=== PATIENT | male | born 1945 | race Caucasian/White ===

== ENCOUNTER 2017-04-15 14:18 | Outpatient (CLI) | payer MEDICARE, BC ==
--- NOTE | 2017-04-17 08:18 | MRI ---
MRI OF THE PELVIS WITH AND WITHOUT IV CONTRAST: INDICATION: Elevated PSA, diagnosis code R97.20. TECHNIQUE: Multiplanar, multisequence MR images were obtained of the pelvis with and without contrast utilizing a prostate cancer protocol, 16 cc of MultiHance was utilized for the examination. FINDINGS: The prostate measures 6.8 x 8.3 x 4.9 cm giving an estimated total prostatic volume of 143.8 cc. The re is a large protruding nodule extending from the base of the prostate into the lumen of the bladder approximately 3.4 cm that likely overestimates the total prostatic volume. No abnormal region of re stricted diffusion is seen within the peripheral zone on the ADC and DWI images. There are multiple prominent nodules seen within the central zone. No suspicious region is seen within the central zone on the T2 weighted images. The visualized neurovascular bundles appear within normal limits. No re gion of abnormal enhancement seen on the dynamic contrast-enhanced images. There is no pathologicall y enlarged lymph node demonstrated. IMPRESSION: 1. PI-RADS category 1 - very low (clinically significant cancer is highly unlikely to be present). 2. Prominent benign prostatic hypertrophy nodule is seen protruding through the base of the bladder into the lumen just over 3 cm. POS: ALIS
== END 2017-04-15 14:19 | disposition home or self-care (01) ==
LOC: TBSIIMAG 14:18
PROVIDERS: ATTEND Urology
DX: R97.20 Elevated prostate specific antigen [PSA] (principal); N40.0 Benign prostatic hyperplasia without lower urinary tract symptoms
CPT/HCPCS: 72197

== ENCOUNTER 2018-09-24 09:49 | Outpatient (CLI) | payer MEDICARE, BC ==
--- NOTE | 2018-09-24 12:55 | MRI ---
EXAM: MRI of the pelvis/prostate without and with contrast HISTORY: elevated PSA COMPARISON: 04/15/2017 TECHNIQUE: Multiplanar multisequence MR images were obtained of the pelvis without and with IV contra st. Evaluation of this exam was performed with a Eve workstation. FINDINGS: Central gland: Severe hypertrophy of the central gland consistent with BPH. There is a large median l obe of the prostate extending into the urinary bladder. No suspicious low T2 signal lesion is seen. Peripheral zone: No restricted diffusion is seen. No low signal on ADC map. Seminal vesicles: Intact without abnormality Neurovascular bundles: Intact Pelvic lymph nodes: No pelvic adenopathy Other visualized intrapelvic structures: Unremarkable Osseous structures: No marrow signal abnormality IMPRESSION: PI-RADS Category 2-low likelihood that a clinically significant cancer is present.
== END 2018-09-24 09:50 | disposition home or self-care (01) ==
LOC: TBSIIMAG 09:49
PROVIDERS: ATTEND Urology
DX: R97.20 Elevated prostate specific antigen [PSA] (principal)
CPT/HCPCS: 72197; 82565

== ENCOUNTER 2023-03-31 22:37 | Emergency (ER) | payer BC, MEDICARE ==
[2023-04-01] MEDS ORDERED: fentaNYL 50 mcg/mL 1 mL Vial ONE ×2 (00:55→00:56)
== END 2023-04-01 02:28 | disposition home or self-care (01) ==
LOC: ERS 22:37
DX: S42.211A Unspecified displaced fracture of surgical neck of right humerus, initial encounter for closed fracture (principal); E11.9 Type 2 diabetes mellitus without complications; W01.0XXA Fall on same level from slipping, tripping and stumbling without subsequent striking against object, initial encounter
CPT/HCPCS: 73030; J3010; 96374

== ENCOUNTER 2023-05-15 13:17 | Inpatient (IN) | payer MEDICARE ==
[2023-05-15 14:44] LABS: Hematocrit 39.5 % (42.0-52.0); Hemoglobin 13.6 g/dL (14.0-18.0); Manual Diff?? YES; Mean Corpuscular HGB CONC 34.4 g/dL (32.0-36.0); Mean Corpuscular Hemoglobin 31.6 pg (27.0-31.0); Mean Corpuscular Volume 91.6 fl (78.0-98.0); Mean Platelet Volume 9.4 fL (7.4-10.4); Platelet Count 226 10x3/uL (130-400); RBC Distribution Width 13.3 % (11.5-14.5); Red Blood Cell (RBC) Count 4.31 mill/uL (4.70-6.10)
[2023-05-15 14:50] LABS: Delete Auto Diff?? YES
[2023-05-15 15:06] LABS: Albumin 3.5 g/dL (3.4-4.8); Anion Gap 20 mmol/L (10-20); BUN (Urea Nitrogen) 118 mg/dL (8.4-25.7); Calc. Creatinine Clearance 0 mL/min (70-130); Calcium 8.2 mg/dL (7.8-10.44); Carbon Dioxide 19 mmol/L (23-31); Chloride 96 mmol/L (98-107); Estimated GFR 18; Glucose 343 mg/dL (83-110); Potassium 3.8 mmol/L (3.5-5.1); Protein, Total 5.8 g/dL (5.8-8.1); Sodium 131 mmol/L (136-145)
[2023-05-15 15:07] LABS: ALT (SGPT) 19 U/L (8-55); AST (SGOT) 23 U/L (5-34); Alkaline Phosphatase 88 U/L (40-110); Globulin 2.3 g/dL (2.4-3.5); Lipase 7 U/L (8-78); Magnesium 2.1 mg/dL (1.6-2.6)
[2023-05-15 15:09] LABS: Troponin I 0.024 ng/mL (< 0.028)
[2023-05-15 15:13] LABS: SARS-CoV-2 NAA Rapid Test Not Detected (NotDetected)
[2023-05-15 15:16] LABS: Band 38 % (5-11); CellaVision Operator ID LAB.KB; Dohle Bodies SLIGHT; Lymphocytes 5 % (21-51); Macrocytosis SLIGHT = 6-15 cells HPF (0-5); Monocytes 11 % (0-10); Neutrophil 47 % (42-75); Platelet Adequacy Comment Platelets Normal; Polychromasia SLIGHT = 2-3 cells HPF (0-2); Smudge Cells 35.2 %; Total Cell Count 105; Toxic Granulation SLIGHT
[2023-05-15] MEDS ORDERED: cefTRIAXone (ROCEPHIN) 2 GM VIAL ONE (15:17)
[2023-05-15] MEDS ORDERED: Sodium Chloride 0.9% 100 ML ONE (15:17)
[2023-05-15] MEDS ORDERED: Azithromycin 500 MG VIAL ONE (16:02)
[2023-05-15] MEDS ORDERED: Glucagon 1 MG/ML KIT IM PRN (16:52)
[2023-05-15] MEDS ORDERED: Dextrose 50% Abboject 50 ML SYRINGE SLOW IVP PRN (16:52)
[2023-05-15] MEDS ORDERED: Ondansetron ODT 4 MG TAB PO PRN (16:52)
[2023-05-15] MEDS ORDERED: Dextrose 5% in Water 1,000 ML IV PRN (16:52)
[2023-05-15] MEDS ORDERED: Metoprolol Tartrate 5 MG (5 mL) VIAL ONE ×2 (17:22→18:00)
[2023-05-15 18:46] LABS: Bilirubin Negative (Negative); Blood, Urine Trace (Negative); CAUTI Indications for Culture Pelvic or flank pain; Clarity Turbid (Clear); Glucose, Urine (Dipstick) 100 mg/dL (Negative); Ketone, Urine Trace mg/dL (Negative); Leukocyte Negative Leu/uL (Negative); Nitrite Negative (Negative); Protein, Urine (Dipstick) 30 mg/dL (Neg-Trace); RBC/HPF 0-3 HPF (0-3); Specific Gravity, Urine 1.015 (1.002-1.036); Squamous Epithelial None Seen HPF (0-3); Urobilinogen Normal mg/dL (Less than 2)
[2023-05-15 18:49] LABS: Bacteria/HPF 1+ HPF (None Seen)
[2023-05-15 18:50] LABS: Urine Culture Reflex No No
[2023-05-16] MEDS: HumaLOG 300 UNITS/3 ML VIAL SC PRN ×2 (00:32→20:10)
[2023-05-16] MEDS: Famotidine 20 MG TAB PO SCH ×2 (00:33→10:36)
[2023-05-16] MEDS: Sodium Chloride 0.9% 1,000 ML IV SCH ×3 (00:33→18:08)
[2023-05-16 04:38] LABS: Hematocrit 36.9 % (42.0-52.0); Hemoglobin 12.6 g/dL (14.0-18.0); Manual Diff?? YES; Mean Corpuscular HGB CONC 34.1 g/dL (32.0-36.0); Mean Corpuscular Hemoglobin 31.6 pg (27.0-31.0); Mean Corpuscular Volume 92.5 fl (78.0-98.0); Platelet Count 221 10x3/uL (130-400); RBC Distribution Width 13.5 % (11.5-14.5); Red Blood Cell (RBC) Count 3.99 mill/uL (4.70-6.10); White Blood Cell (WBC) Count 15.9 10x3/uL (4.8-10.8)
[2023-05-16 05:11] LABS: ALT (SGPT) 14 U/L (8-55); AST (SGOT) 17 U/L (5-34); Albumin 2.7 g/dL (3.4-4.8); Alkaline Phosphatase 68 U/L (40-110); Anion Gap 16 mmol/L (10-20); BUN (Urea Nitrogen) 96 mg/dL (8.4-25.7); Bilirubin, Total 0.7 mg/dL (0.2-1.2); Calc. Creatinine Clearance 26 mL/min (70-130); Calcium 7.8 mg/dL (7.8-10.44); Carbon Dioxide 20 mmol/L (23-31); Chloride 104 mmol/L (98-107); Estimated GFR 30; Globulin 2.2 g/dL (2.4-3.5); Glucose 247 mg/dL (83-110); Potassium 3.1 mmol/L (3.5-5.1); Protein, Total 4.9 g/dL (5.8-8.1); Sodium 137 mmol/L (136-145)
[2023-05-16 05:31] LABS: Delete Auto Diff?? YES
[2023-05-16 06:02] LABS: Band 35 % (5-11); Burr Cells MODERATE= 6-15 cells HPF (0-1); CellaVision Operator ID lab.abc; Lymphocytes 3 % (21-51); Monocytes 2 % (0-10); Neutrophil 61 % (42-75); Platelet Adequacy Comment Platelets Normal; Poikilocytosis SLIGHT = 6-15 cells HPF (0-5); Smudge Cells 30.8 %; Total Cell Count 107; Toxic Granulation SLIGHT
[2023-05-16] MEDS: Insulin Regular 300 UNITS/3 ML VIAL SC PRN (06:22)
[2023-05-16] MEDS: Albumin 25% 25 GM (100 mL) BOT IVPB SCH ×4 (11:16→23:44)
[2023-05-16] MEDS: metFORMIN 500 MG TAB PO SCH (11:28)
[2023-05-16] MEDS: Pioglitazone HCl 15 MG TAB PO SCH (11:28)
[2023-05-16] MEDS: Tamsulosin HCl 0.4 MG CAP PO SCH ×2 (11:28→21:19)
[2023-05-16] MEDS ORDERED: Potassium Chloride 20 MEQ TAB PO SCH ×2 (14:00→14:30)
[2023-05-16] MEDS: Azithromycin 500 MG in Sodium Chloride 0.9% 250 ML 250 ML IVPB SCH (16:31)
[2023-05-16] MEDS ORDERED: Potassium Bicarbonate/Cit Ac 20 MEQ TAB PO SCH (18:45)
[2023-05-16] MEDS: cefTRIAXone\\ROCEPHIN 2 GM in Sodium Chloride 0.9% 100 ML IVPB SCH (20:10)
[2023-05-16] MEDS: Ondansetron PF 4 MG/2 ML Vial IVP PRN (21:19)
[2023-05-16] MEDS: Acetaminophen 325 MG TAB PO PRN (21:23)
[2023-05-16 22:33] LABS: Anion Gap 13 mmol/L (10-20); BUN (Urea Nitrogen) 71 mg/dL (8.4-25.7); Calc. Creatinine Clearance 35 mL/min (70-130); Calcium 7.6 mg/dL (7.8-10.44); Carbon Dioxide 18 mmol/L (23-31); Chloride 108 mmol/L (98-107); Estimated GFR 44; Glucose 196 mg/dL (83-110); Magnesium 1.9 mg/dL (1.6-2.6); Potassium 3.3 mmol/L (3.5-5.1); Sodium 136 mmol/L (136-145)
[2023-05-16] MEDS: Potassium Chloride 20 MEQ in Premix 1 BAG IVPB SCH (23:54)
[2023-05-17] MEDS: Potassium Chloride 20 MEQ in Premix 1 BAG IVPB SCH (01:58)
[2023-05-17] MEDS: Sodium Chloride 0.9% 1,000 ML IV SCH ×4 (03:32→20:41)
[2023-05-17 05:08] LABS: Hematocrit 30.6 % (42.0-52.0); Hemoglobin 10.3 g/dL (14.0-18.0); Manual Diff?? YES; Mean Corpuscular HGB CONC 33.7 g/dL (32.0-36.0); Mean Corpuscular Hemoglobin 31.8 pg (27.0-31.0); Mean Corpuscular Volume 94.4 fl (78.0-98.0); Mean Platelet Volume 9.7 fL (7.4-10.4); Platelet Count 162 10x3/uL (130-400); RBC Distribution Width 13.9 % (11.5-14.5); Red Blood Cell (RBC) Count 3.24 mill/uL (4.70-6.10); White Blood Cell (WBC) Count 6.9 10x3/uL (4.8-10.8)
[2023-05-17 05:10] LABS: Delete Auto Diff?? YES
[2023-05-17 05:48] LABS: Anisocytosis SLIGHT = 6-15 cells HPF (0-5); Band 50 % (5-11); CellaVision Operator ID LAB.CLH1; Hypochromia SLIGHT = 6-15 cells HPF (0-5); Large Platelets 0.9 % (0-5); Lymphocytes 2 % (21-51); Metamyelocyte 5 % (0-0); Monocytes 4 % (0-10); Neutrophil 40 % (42-75); Platelet Adequacy Comment Platelets Normal; Polychromasia SLIGHT = 2-3 cells HPF (0-2); Total Cell Count 106
[2023-05-17 05:55] LABS: Anion Gap 12 mmol/L (10-20); BUN (Urea Nitrogen) 63 mg/dL (8.4-25.7); Calc. Creatinine Clearance 38 mL/min (70-130); Calcium 7.7 mg/dL (7.8-10.44); Carbon Dioxide 16 mmol/L (23-31); Chloride 112 mmol/L (98-107); Estimated GFR 49; Glucose 155 mg/dL (83-110); Potassium 3.5 mmol/L (3.5-5.1); Sodium 136 mmol/L (136-145)
[2023-05-17] MEDS: Albumin 25% 25 GM (100 mL) BOT IVPB SCH (06:37)
[2023-05-17] MEDS ORDERED: Famotidine 20 MG TAB PO SCH (09:00)
[2023-05-17] MEDS: Tamsulosin HCl 0.4 MG CAP PO SCH ×2 (09:47→21:04)
[2023-05-17] MEDS: Pioglitazone HCl 15 MG TAB PO SCH (09:47)
[2023-05-17] MEDS: metFORMIN 500 MG TAB PO SCH (09:47)
[2023-05-17] MEDS: cefTRIAXone\\ROCEPHIN 2 GM in Sodium Chloride 0.9% 100 ML IVPB SCH (15:55)
[2023-05-17] MEDS: Azithromycin 500 MG in Sodium Chloride 0.9% 250 ML 250 ML IVPB SCH (15:59)
[2023-05-18] MEDS ORDERED: Metoprolol Tartrate 5 MG (5 mL) VIAL IVP SCH (03:30)
[2023-05-18] MEDS ORDERED: Metoprolol Tartrate 5 MG (5 mL) VIAL IVP PRN (03:59)
[2023-05-18 04:11] LABS: Hematocrit 31.3 % (42.0-52.0); Hemoglobin 10.4 g/dL (14.0-18.0); Manual Diff?? YES; Mean Corpuscular HGB CONC 33.2 g/dL (32.0-36.0); Mean Corpuscular Hemoglobin 31.1 pg (27.0-31.0); Mean Corpuscular Volume 93.7 fl (78.0-98.0); Mean Platelet Volume 9.3 fL (7.4-10.4); Platelet Count 170 10x3/uL (130-400); RBC Distribution Width 14.2 % (11.5-14.5); Red Blood Cell (RBC) Count 3.34 mill/uL (4.70-6.10); White Blood Cell (WBC) Count 6.2 10x3/uL (4.8-10.8)
[2023-05-18] MEDS ORDERED: Communication Order-Pharmacy FS ONE (04:21)
[2023-05-18 04:31] LABS: Anion Gap 15 mmol/L (10-20); BUN (Urea Nitrogen) 38 mg/dL (8.4-25.7); Calc. Creatinine Clearance 45 mL/min (70-130); Calcium 7.5 mg/dL (7.8-10.44); Carbon Dioxide 13 mmol/L (23-31); Chloride 113 mmol/L (98-107); Estimated GFR 60; Glucose 173 mg/dL (83-110); Magnesium 1.9 mg/dL (1.6-2.6); Potassium 3.3 mmol/L (3.5-5.1); Sodium 138 mmol/L (136-145)
[2023-05-18] MEDS ORDERED: Enoxaparin 60 MG (0.6 mL) SYRINGE SC SCH (04:45)
[2023-05-18 04:53] LABS: Delete Auto Diff?? YES
[2023-05-18 05:34] LABS: Band 7 % (5-11); Burr Cells MODERATE= 6-15 cells HPF (0-1); CellaVision Operator ID LAB.NR; Large Platelets 4.5 % (0-5); Lymphocytes 2 % (21-51); Macrocytosis SLIGHT = 6-15 cells HPF (0-5); Monocytes 6 % (0-10); Neutrophil 85 % (42-75); Platelet Adequacy Comment Platelets Normal; Poikilocytosis MARKED = >30 cells HPF (0-5); Smudge Cells 37.3 %; Total Cell Count 67
[2023-05-18] MEDS: dilTIAZem 125 MG in Sodium Chloride 0.9% 100 ML IVPB SCH (05:36)
[2023-05-18] MEDS: Sodium Chloride 0.9% 1,000 ML IV SCH ×4 (05:36→22:21)
[2023-05-18] MEDS: metFORMIN 500 MG TAB PO SCH (09:50)
[2023-05-18] MEDS: Tamsulosin HCl 0.4 MG CAP PO SCH ×2 (09:50→22:21)
[2023-05-18] MEDS: Pioglitazone HCl 15 MG TAB PO SCH (09:50)
[2023-05-18] MEDS: cefTRIAXone\\ROCEPHIN 2 GM in Sodium Chloride 0.9% 100 ML IVPB SCH (13:50)
[2023-05-18] MEDS: Azithromycin 500 MG in Sodium Chloride 0.9% 250 ML 250 ML IVPB SCH (15:53)
[2023-05-19] MEDS: dilTIAZem 125 MG in Sodium Chloride 0.9% 100 ML IVPB SCH (02:14)
[2023-05-19] MEDS: Sodium Chloride 0.9% 1,000 ML IV SCH ×2 (08:15→16:47)
[2023-05-19] MEDS ORDERED: FLU VACC QS2023(65UP)/MF59C/PF 60 MCG/0.5 ML SYRINGE IM ONE (09:00)
[2023-05-19] MEDS: Tamsulosin HCl 0.4 MG CAP PO SCH ×2 (09:53→21:46)
[2023-05-19] MEDS: metFORMIN 500 MG TAB PO SCH (09:53)
[2023-05-19] MEDS: Pioglitazone HCl 15 MG TAB PO SCH (09:53)
[2023-05-19] MEDS: cefTRIAXone\\ROCEPHIN 2 GM in Sodium Chloride 0.9% 100 ML IVPB SCH (15:15)
[2023-05-19] MEDS: Azithromycin 500 MG in Sodium Chloride 0.9% 250 ML 250 ML IVPB SCH (16:47)
[2023-05-19] MEDS ORDERED: dilTIAZem 125 MG in Sodium Chloride 0.9% 100 ML IVPB SCH (17:30)
[2023-05-19] MEDS: Acetaminophen 325 MG TAB PO PRN (21:46)
[2023-05-20] MEDS: Sodium Chloride 0.9% 1,000 ML IV SCH ×2 (02:32→06:53)
[2023-05-20] MEDS ORDERED: dilTIAZem 125 MG in Sodium Chloride 0.9% 100 ML IVPB SCH (03:00)
[2023-05-20] MEDS ORDERED: Digoxin 0.5 MG/2 ML AMP ONE (03:26)
[2023-05-20 03:30] LABS: Hemoglobin 10.3 g/dL (14.0-18.0); Manual Diff?? YES; Mean Corpuscular HGB CONC 34.3 g/dL (32.0-36.0); Mean Corpuscular Hemoglobin 32.6 pg (27.0-31.0); Mean Corpuscular Volume 94.9 fl (78.0-98.0); Mean Platelet Volume 9.6 fL (7.4-10.4); Platelet Count 158 10x3/uL (130-400); RBC Distribution Width 14.6 % (11.5-14.5); Red Blood Cell (RBC) Count 3.16 mill/uL (4.70-6.10); White Blood Cell (WBC) Count 5.5 10x3/uL (4.8-10.8)
[2023-05-20 03:32] LABS: Delete Auto Diff?? YES
[2023-05-20 03:44] LABS: Anion Gap 14 mmol/L (10-20); BUN (Urea Nitrogen) 31 mg/dL (8.4-25.7); Calc. Creatinine Clearance 42 mL/min (70-130); Calcium 7.1 mg/dL (7.8-10.44); Carbon Dioxide 12 mmol/L (23-31); Chloride 112 mmol/L (98-107); Estimated GFR 54; Glucose 181 mg/dL (83-110); Potassium 3.1 mmol/L (3.5-5.1); Sodium 135 mmol/L (136-145)
[2023-05-20 04:01] LABS: Band 53 % (5-11); CellaVision Operator ID LAB.CLH1; Eosinophils 2 % (0-10); Hypochromia SLIGHT = 6-15 cells HPF (0-5); Large Platelets 1.6 % (0-5); Lymphocytes 16 % (21-51); Neutrophil 29 % (42-75); Nucleated RBC (Manual Ct) 2 % (0); Platelet Adequacy Comment Platelets Normal; Polychromasia SLIGHT = 2-3 cells HPF (0-2); Total Cell Count 62
[2023-05-20 04:03] LABS: Magnesium 1.9 mg/dL (1.6-2.6)
[2023-05-20] MEDS ORDERED: Magnesium 2 GM/50 ML(in water) 2 GM in Premix 1 BAG IVPB SCH (04:15)
[2023-05-20] MEDS ORDERED: Albumin 25% 25 GM (100 mL) BOT IVPB SCH (04:15)
[2023-05-20 04:22] LABS: Troponin I Less than 0.010 ng/mL (< 0.028)
[2023-05-20] MEDS ORDERED: Sodium Bicarbonate 75 MEQ in Sodium Chloride 0.45% 1,000 ML IV SCH ×2 (04:30→04:51)
[2023-05-20] MEDS ORDERED: dilTIAZem 25 MG/5 ML VIAL SLOW IVP SCH (04:45)
[2023-05-20] MEDS: Potassium Chloride 20 MEQ in Premix 1 BAG IVPB SCH ×2 (05:32→07:35)
[2023-05-20] MEDS ORDERED: metroNIDAZOLE 500 MG in Premix 1 BAG IVPB SCH (06:00)
[2023-05-20 06:32] LABS: Legionella Urinary Ag Negative (Negative); Strep pneumo Urine Ag NEGATIVE (NEGATIVE)
[2023-05-20] MEDS: dilTIAZem 125 MG in Sodium Chloride 0.9% 100 ML IVPB SCH (06:44)
[2023-05-20] MEDS ORDERED: NOREPINEPHRINE 8 MG/250 ML-D5W 250 ML IVPB SCH (08:15)
[2023-05-20 08:29] LABS: Anion Gap 12 mmol/L (10-20); BUN (Urea Nitrogen) 31 mg/dL (8.4-25.7); Calc. Creatinine Clearance 42 mL/min (70-130); Calcium 7.3 mg/dL (7.8-10.44); Carbon Dioxide 12 mmol/L (23-31); Chloride 114 mmol/L (98-107); Estimated GFR 54; Glucose 184 mg/dL (83-110); Potassium 3.7 mmol/L (3.5-5.1); Sodium 134 mmol/L (136-145)
[2023-05-20] MEDS ORDERED: Electrolyte Replacement Protocol 1 EACH FS SCH (08:30)
[2023-05-20] MEDS ORDERED: Electrolyte Replacement Protocol FS PRN (08:45)
[2023-05-20] MEDS: Heparin 5,000 UNITS/ML VIAL SC SCH ×2 (09:50→21:23)
[2023-05-20] MEDS: Tamsulosin HCl 0.4 MG CAP PO SCH ×2 (09:50→21:24)
[2023-05-20] MEDS: Ondansetron PF 4 MG/2 ML Vial IVP PRN (13:04)
[2023-05-20] MEDS ORDERED: Sodium Bicarbonate 150 MEQ in Sodium Chloride 0.45% 1,000 ML IV SCH (13:09)
[2023-05-20] MEDS: cefTRIAXone\\ROCEPHIN 2 GM in Sodium Chloride 0.9% 100 ML IVPB SCH (15:03)
[2023-05-20] MEDS: Azithromycin 500 MG in Sodium Chloride 0.9% 250 ML 250 ML IVPB SCH (16:11)
[2023-05-20] MEDS ORDERED: Pantoprazole 40 MG VIAL IVP SCH (18:15)
[2023-05-20] MEDS: Vancomycin HCl 125 MG Capsule PO SCH (21:22)
[2023-05-21] MEDS: Vancomycin HCl 125 MG Capsule PO SCH ×6 (03:42→23:17)
[2023-05-21 06:25] LABS: Hematocrit 27.8 % (42.0-52.0); Hemoglobin 9.4 g/dL (14.0-18.0); Platelet Count 210 10x3/uL (130-400)
[2023-05-21 06:26] LABS: Hematocrit 28.5 % (42.0-52.0); Hemoglobin 9.6 g/dL (14.0-18.0); Manual Diff?? YES; Mean Corpuscular HGB CONC 33.7 g/dL (32.0-36.0); Mean Corpuscular Hemoglobin 31.5 pg (27.0-31.0); Mean Corpuscular Volume 93.4 fl (78.0-98.0); Mean Platelet Volume 9.7 fL (7.4-10.4); Platelet Count 209 10x3/uL (130-400); RBC Distribution Width 14.8 % (11.5-14.5); Red Blood Cell (RBC) Count 3.05 mill/uL (4.70-6.10); White Blood Cell (WBC) Count 9.1 10x3/uL (4.8-10.8)
[2023-05-21 06:31] LABS: Delete Auto Diff?? YES
[2023-05-21] MEDS: dilTIAZem 125 MG in Sodium Chloride 0.9% 100 ML IVPB SCH (06:43)
[2023-05-21] MEDS ORDERED: Sodium Chloride 0.9% 1,000 ML IV SCH (07:00)
[2023-05-21 07:14] LABS: Anion Gap 17 mmol/L (10-20); BUN (Urea Nitrogen) 32 mg/dL (8.4-25.7); Calc. Creatinine Clearance 37 mL/min (70-130); Calcium 6.9 mg/dL (7.8-10.44); Carbon Dioxide 13 mmol/L (23-31); Chloride 110 mmol/L (98-107); Estimated GFR 46; Glucose 189 mg/dL (83-110); Magnesium 1.8 mg/dL (1.6-2.6); Potassium 3.2 mmol/L (3.5-5.1); Sodium 137 mmol/L (136-145)
[2023-05-21 07:22] LABS: Anisocytosis SLIGHT = 6-15 cells HPF (0-5); Band 27 % (5-11); CellaVision Operator ID lab.dlt; Eosinophils 1 % (0-10); Large Platelets 3.8 % (0-5); Lymphocytes 3 % (21-51); Monocytes 2 % (0-10); Neutrophil 66 % (42-75); Platelet Adequacy Comment Platelets Normal; Poikilocytosis SLIGHT = 6-15 cells HPF (0-5); Polychromasia SLIGHT = 2-3 cells HPF (0-2); Total Cell Count 104
[2023-05-21] MEDS ORDERED: Magnesium 2 GM/50 ML(in water) 2 GM in Premix 1 BAG IVPB SCH (09:00)
[2023-05-21] MEDS ORDERED: Potassium Chloride 20 MEQ TAB PO SCH (09:00)
[2023-05-21] MEDS: Tamsulosin HCl 0.4 MG CAP PO SCH ×2 (09:06→21:02)
[2023-05-21] MEDS: Pantoprazole 40 MG VIAL IVP SCH (09:06)
[2023-05-21] MEDS: Sodium Chloride 0.9% 1,000 ML IV SCH ×3 (09:06→21:03)
[2023-05-21] MEDS: Heparin 5,000 UNITS/ML VIAL SC SCH ×2 (09:07→21:01)
[2023-05-21] MEDS ORDERED: dilTIAZem CD 180 MG CAP PO SCH (09:30)
[2023-05-21] MEDS: cefTRIAXone\\ROCEPHIN 2 GM in Sodium Chloride 0.9% 100 ML IVPB SCH (14:17)
[2023-05-21 14:35] LABS: Potassium 3.4 mmol/L (3.5-5.1)
[2023-05-21] MEDS: Calcium Carbonate 600 MG + Vit D TAB PO SCH (17:56)
[2023-05-21] MEDS: Dronedarone HCl 400 MG TAB PO SCH (17:57)
[2023-05-21] MEDS ORDERED: Apixaban 5 MG TAB PO SCH (21:00)
[2023-05-22] MEDS: Potassium Chloride 20 MEQ in Premix 1 BAG IVPB SCH ×2 (01:10→03:38)
[2023-05-22] MEDS: Acetaminophen 325 MG TAB PO PRN (03:37)
[2023-05-22 05:58] LABS: Hematocrit 26.9 % (42.0-52.0); Hemoglobin 9.1 g/dL (14.0-18.0); Manual Diff?? YES; Mean Corpuscular HGB CONC 33.8 g/dL (32.0-36.0); Mean Corpuscular Hemoglobin 31.5 pg (27.0-31.0); Mean Corpuscular Volume 93.1 fl (78.0-98.0); Mean Platelet Volume 9.2 fL (7.4-10.4); Platelet Count 175 10x3/uL (130-400); Red Blood Cell (RBC) Count 2.89 mill/uL (4.70-6.10)
[2023-05-22 06:00] LABS: Delete Auto Diff?? YES
[2023-05-22 06:25] LABS: Anion Gap 11 mmol/L (10-20); BUN (Urea Nitrogen) 26 mg/dL (8.4-25.7); Calc. Creatinine Clearance 41 mL/min (70-130); Carbon Dioxide 15 mmol/L (23-31); Chloride 111 mmol/L (98-107); Estimated GFR 53; Glucose 191 mg/dL (83-110); Potassium 3.7 mmol/L (3.5-5.1); Sodium 133 mmol/L (136-145)
[2023-05-22 06:30] LABS: Calcium 6.9 mg/dL (7.8-10.44); Critical Call Chemistry NUR.BR6 AT 0630
[2023-05-22] MEDS: Vancomycin HCl 125 MG Capsule PO SCH ×3 (06:41→17:17)
[2023-05-22] MEDS: Sodium Chloride 0.9% 1,000 ML IV SCH (06:45)
[2023-05-22 06:46] LABS: Band 32 % (5-11); CellaVision Operator ID LAB.CLH1; Hypochromia SLIGHT = 6-15 cells HPF (0-5); Large Platelets 2.9 % (0-5); Lymphocytes 2 % (21-51); Neutrophil 66 % (42-75); Nucleated RBC (Manual Ct) 1 % (0); Platelet Adequacy Comment Platelets Normal; Poikilocytosis SLIGHT = 6-15 cells HPF (0-5); Polychromasia SLIGHT = 2-3 cells HPF (0-2); Total Cell Count 103
[2023-05-22] MEDS ORDERED: Etomidate 40 MG (20 mL) VIAL ONE (07:17)
[2023-05-22] MEDS ORDERED: Lidocaine 1% PF 5 ML VIAL ONE ×2 (07:17→09:12)
[2023-05-22] MEDS ORDERED: VANCOMYCIN IVPB PRN (07:17)
[2023-05-22] MEDS ORDERED: PROPOFOL 0 ML ONE (07:17)
[2023-05-22] MEDS ORDERED: Vancomycin (BATCH) 2 GM in Premix 1 BAG IVPB SCH (07:45)
[2023-05-22 08:00] LABS: Bilirubin Negative (Negative); Blood, Urine 1+ (Negative); Clarity Clear (Clear); Glucose, Urine (Dipstick) 150 mg/dL (Negative); Ketone, Urine 20 mg/dL (Negative); Leukocyte Negative Leu/uL (Negative); Nitrite Negative (Negative); Protein, Urine (Dipstick) 70 mg/dL (Neg-Trace); Specific Gravity, Urine 1.017 (1.002-1.036); Urobilinogen Normal mg/dL (Less than 2); WBC/HPF 0-3 HPF (0-3)
[2023-05-22 08:01] LABS: Bacteria/HPF None Seen HPF (None Seen); CAUTI Indications for Culture Fever or rigors; Squamous Epithelial 0-3 HPF (0-3)
[2023-05-22] MEDS: Lactated Ringer's 1,000 ML IV SCH ×3 (08:02→20:12)
[2023-05-22 08:03] LABS: Urine Culture Reflex No No
[2023-05-22 08:23] LABS: SARS-CoV-2 NAA Rapid Test Not Detected (NotDetected)
[2023-05-22] MEDS: Cefepime 1 GM in Sodium Chloride 0.9% 100 ML IVPB SCH ×2 (08:31→20:13)
[2023-05-22] MEDS: Pantoprazole 40 MG VIAL IVP SCH ×2 (08:31→20:12)
[2023-05-22 08:50] VITALS: BMI 28.6
[2023-05-22] MEDS ORDERED: PROPOFOL 20 ML ONE (09:12)
[2023-05-22] MEDS: Dronedarone HCl 400 MG TAB PO SCH ×2 (10:17→17:17)
[2023-05-22] MEDS: Tamsulosin HCl 0.4 MG CAP PO SCH ×2 (10:17→20:12)
[2023-05-22] MEDS: Heparin 5,000 UNITS/ML VIAL SC SCH ×2 (10:17→20:12)
[2023-05-22] MEDS: Calcium Carbonate 600 MG + Vit D TAB PO SCH ×2 (10:17→17:17)
[2023-05-22] MEDS: dilTIAZem CD 180 MG CAP PO SCH (11:52)
[2023-05-22] MEDS ORDERED: Sodium Chloride 0.9% 1,000 ML IV SCH (13:30)
[2023-05-22] MEDS: Insulin Regular 300 UNITS/3 ML VIAL SC PRN ×2 (14:17→18:09)
[2023-05-22] MEDS ORDERED: dilTIAZem 125 MG in Sodium Chloride 0.9% 100 ML IVPB SCH (18:30)
[2023-05-23] MEDS: Vancomycin HCl 125 MG Capsule PO SCH ×4 (00:10→18:27)
[2023-05-23] MEDS: Lactated Ringer's 1,000 ML IV SCH ×4 (03:21→22:56)
[2023-05-23 05:12] LABS: Hematocrit 29.8 % (42.0-52.0); Manual Diff?? YES; Mean Corpuscular HGB CONC 33.6 g/dL (32.0-36.0); Mean Corpuscular Hemoglobin 31.2 pg (27.0-31.0); Mean Corpuscular Volume 92.8 fl (78.0-98.0); Mean Platelet Volume 9.7 fL (7.4-10.4); Platelet Count 185 10x3/uL (130-400); RBC Distribution Width 15.1 % (11.5-14.5); Red Blood Cell (RBC) Count 3.21 mill/uL (4.70-6.10); White Blood Cell (WBC) Count 8.5 10x3/uL (4.8-10.8)
[2023-05-23 05:17] LABS: Delete Auto Diff?? YES
[2023-05-23 05:39] LABS: Anion Gap 12 mmol/L (10-20); BUN (Urea Nitrogen) 22 mg/dL (8.4-25.7); Calc. Creatinine Clearance 60 mL/min (70-130); Calcium 7.2 mg/dL (7.8-10.44); Carbon Dioxide 17 mmol/L (23-31); Chloride 109 mmol/L (98-107); Estimated GFR 55; Glucose 139 mg/dL (83-110); Potassium 3.2 mmol/L (3.5-5.1); Sodium 135 mmol/L (136-145)
[2023-05-23 05:44] LABS: Anisocytosis SLIGHT = 6-15 cells HPF (0-5); Band 41 % (5-11); CellaVision Operator ID LAB.CLH1; Eosinophils 2 % (0-10); Hypochromia SLIGHT = 6-15 cells HPF (0-5); Lymphocytes 2 % (21-51); Macrocytosis SLIGHT = 6-15 cells HPF (0-5); Monocytes 2 % (0-10); Neutrophil 53 % (42-75); Platelet Adequacy Comment Platelets Normal; Polychromasia SLIGHT = 2-3 cells HPF (0-2); Total Cell Count 100
[2023-05-23] MEDS ORDERED: Potassium Chloride 20 MEQ in Premix 1 BAG IVPB SCH ×2 (07:45)
[2023-05-23] MEDS ORDERED: Potassium Bicarbonate/Cit Ac 20 MEQ TAB PO SCH (08:00)
[2023-05-23] MEDS: Vancomycin (BATCH) 1.25 GM in Premix 1 BAG IVPB SCH (08:00)
[2023-05-23] MEDS: Pantoprazole 40 MG VIAL IVP SCH ×2 (08:06→22:54)
[2023-05-23] MEDS: Heparin 5,000 UNITS/ML VIAL SC SCH ×2 (08:07→22:54)
[2023-05-23] MEDS: dilTIAZem CD 180 MG CAP PO SCH (08:07)
[2023-05-23] MEDS: Calcium Carbonate 600 MG + Vit D TAB PO SCH ×2 (08:07→18:28)
[2023-05-23] MEDS: Tamsulosin HCl 0.4 MG CAP PO SCH ×2 (08:07→22:55)
[2023-05-23] MEDS: Dronedarone HCl 400 MG TAB PO SCH ×2 (08:07→18:27)
[2023-05-23] MEDS ORDERED: Potassium Chloride 20 MEQ TAB PO SCH (09:00)
[2023-05-23] MEDS: Cefepime 1 GM in Sodium Chloride 0.9% 100 ML IVPB SCH ×2 (09:27→22:53)
[2023-05-23] MEDS: Insulin Regular 300 UNITS/3 ML VIAL SC PRN (13:44)
[2023-05-23] MEDS: Sodium Bicarbonate Tab 325 MG TAB PO SCH (22:54)
[2023-05-24] MEDS: Vancomycin HCl 125 MG Capsule PO SCH ×4 (00:11→17:02)
[2023-05-24] MEDS: Lactated Ringer's 1,000 ML IV SCH (03:21)
[2023-05-24 05:56] LABS: Manual Diff?? YES; Mean Corpuscular HGB CONC 33.3 g/dL (32.0-36.0); Mean Corpuscular Hemoglobin 31.8 pg (27.0-31.0); Mean Corpuscular Volume 95.3 fl (78.0-98.0); Mean Platelet Volume 11.2 fL (7.4-10.4); RBC Distribution Width 15.6 % (11.5-14.5)
[2023-05-24 06:26] LABS: Delete Auto Diff?? YES
[2023-05-24 07:18] LABS: Anion Gap 14 mmol/L (10-20); BUN (Urea Nitrogen) 22 mg/dL (8.4-25.7); Calc. Creatinine Clearance 54 mL/min (70-130); Calcium 7.1 mg/dL (7.8-10.44); Carbon Dioxide 16 mmol/L (23-31); Chloride 108 mmol/L (98-107); Estimated GFR 49; Glucose 152 mg/dL (83-110); Magnesium 1.6 mg/dL (1.6-2.6); Potassium 3.7 mmol/L (3.5-5.1); Sodium 134 mmol/L (136-145)
[2023-05-24 07:21] LABS: Vancomycin, Trough 15.2 ug/mL
[2023-05-24] MEDS ORDERED: Magnesium 2 GM/50 ML(in water) 2 GM in Premix 1 BAG IVPB SCH (08:00)
[2023-05-24] MEDS ORDERED: Furosemide 20 MG (2 mL) VIAL SLOW IVP SCH (09:00)
[2023-05-24] MEDS: Dronedarone HCl 400 MG TAB PO SCH ×2 (09:43→16:02)
[2023-05-24] MEDS: Cefepime 1 GM in Sodium Chloride 0.9% 100 ML IVPB SCH (09:43)
[2023-05-24] MEDS: dilTIAZem CD 180 MG CAP PO SCH (09:43)
[2023-05-24] MEDS: Sodium Bicarbonate Tab 325 MG TAB PO SCH ×2 (09:43→15:28)
[2023-05-24] MEDS: Tamsulosin HCl 0.4 MG CAP PO SCH (09:43)
[2023-05-24] MEDS: Calcium Carbonate 600 MG + Vit D TAB PO SCH ×2 (09:43→16:02)
[2023-05-24] MEDS: Pantoprazole 40 MG VIAL IVP SCH (09:44)
[2023-05-24 09:46] LABS: White Blood Cell (WBC) Count 5.7 10x3/uL (4.8-10.8)
[2023-05-24 09:47] LABS: Hematocrit 26.5 % (42.0-52.0); Hemoglobin 8.9 g/dL (14.0-18.0); Red Blood Cell (RBC) Count 2.79 mill/uL (4.70-6.10)
[2023-05-24 09:48] LABS: Platelet Count 166 10x3/uL (130-400)
[2023-05-24] MEDS: Vancomycin (BATCH) 1.25 GM in Premix 1 BAG IVPB SCH (09:50)
[2023-05-24] MEDS: Heparin 5,000 UNITS/ML VIAL SC SCH (10:17)
[2023-05-24 11:39] LABS: Anisocytosis SLIGHT = 6-15 cells HPF (0-5); Band 26 % (5-11); Burr Cells MODERATE= 6-15 cells HPF (0-1); CellaVision Operator ID LAB.KW3; Large Platelets 4.2 % (0-5); Lymphocytes 3 % (21-51); Monocytes 2 % (0-10); Neutrophil 67 % (42-75); Platelet Adequacy Comment Platelets Normal; Polychromasia SLIGHT = 2-3 cells HPF (0-2); Total Cell Count 95; Toxic Granulation SLIGHT
[2023-05-24 14:15] LABS: Adenovirus F 40-41 Not Detected (Not Detected); Astrovirus Not Detected (Not Detected); C. difficile toxin A+B DETECTED (Not Detected); Campylobacter by PCR Not Detected (Not Detected); Cryptosporidium Not Detected (Not Detected); Cyclospora cayetanensis Not Detected (Not Detected); Entamoeba histolytica Not Detected (Not Detected); Enteroaggregative E. coli Not Detected (Not Detected); Enteropathogenic E. coli Not Detected (Not Detected); Enterotoxigenic E. coli Not Detected (Not Detected); Giardia lamblia Not Detected (Not Detected); Norovirus GI-GII Not Detected (Not Detected); Plesiomonas shigelloides Not Detected (Not Detected); Rotavirus A Not Detected (Not Detected); Salmonella Not Detected (Not Detected); Sapovirus Not Detected (Not Detected); Shiga-toxin-producing E coli Not Detected (Not Detected); Shigella/Enteroinvasive E coli Not Detected (Not Detected); Vibrio Not Detected (Not Detected); Vibrio cholerae Not Detected (Not Detected); Yersinia enterocolitica Not Detected (Not Detected)
[2023-05-24 15:27] VITALS: BP 123/58; TEMP 97.8
[2023-05-24] MEDS ORDERED: Morphine 2 MG/ML VIAL SLOW IVP PRN (15:57)
[2023-05-24] MEDS: Acetaminophen 325 MG TAB PO PRN (16:02)
[2023-05-24 18:10] LABS: Bilirubin Negative (Negative); Blood, Urine 1+ (Negative); CAUTI Indications for Culture Fever or rigors; Clarity Clear (Clear); Glucose, Urine (Dipstick) 100 mg/dL (Negative); Ketone, Urine 10 mg/dL (Negative); Leukocyte Negative Leu/uL (Negative); Nitrite Negative (Negative); Protein, Urine (Dipstick) 20 mg/dL (Neg-Trace); RBC/HPF 0-3 HPF (0-3); Specific Gravity, Urine 1.009 (1.002-1.036); Squamous Epithelial 0-3 HPF (0-3); Urobilinogen Normal mg/dL (Less than 2); WBC/HPF 0-3 HPF (0-3)
[2023-05-24 18:17] LABS: Bacteria/HPF 1+ HPF (None Seen)
[2023-05-24 18:18] LABS: Urine Culture Reflex No No
== END 2023-05-24 18:37 | disposition left against medical advice (07) | DRG 871 ==
LOC: SUATTDRO 13:17 → ERS 13:17 → OBSVTOIN 16:43 → ERHOLD 16:43 → 2NO 21:42 → CCU 05-20 03:57 → 2NO 05-20 18:34 → 2SW 05-22 10:55 → 2NO 05-23 19:59
PROVIDERS: ADMIT Internal Medicine; ATTEND Hospitalist
PROC: 3E03329 Introduction of Other Anti-infective into Peripheral Vein, Percutaneous Approach (ICD-10-PCS; 2023-05-15)
PROC: 30233J1 Transfusion of Nonautologous Serum Albumin into Peripheral Vein, Percutaneous Approach (ICD-10-PCS; 2023-05-16)
PROC: 0DB68ZX Excision of Stomach, Via Natural or Artificial Opening Endoscopic, Diagnostic (ICD-10-PCS; principal; 2023-05-22)
DX: A41.9 Sepsis, unspecified organism (principal); J18.9 Pneumonia, unspecified organism; N17.9 Acute kidney failure, unspecified; E87.1 Hypo-osmolality and hyponatremia; E46 Unspecified protein-calorie malnutrition; E87.20 Acidosis, unspecified; K21.9 Gastro-esophageal reflux disease without esophagitis; Z90.49 Acquired absence of other specified parts of digestive tract; Z82.49 Family history of ischemic heart disease and other diseases of the circulatory system; Z11.52 Encounter for screening for COVID-19; E86.0 Dehydration; Z79.4 Long term (current) use of insulin; Z79.899 Other long term (current) drug therapy; R65.20 Severe sepsis without septic shock; E11.22 Type 2 diabetes mellitus with diabetic chronic kidney disease; N18.30 Chronic kidney disease, stage 3 unspecified; I12.9 Hypertensive chronic kidney disease with stage 1 through stage 4 chronic kidney disease, or unspecified chronic kidney disease; N40.0 Benign prostatic hyperplasia without lower urinary tract symptoms; Z68.28 Body mass index [BMI] 28.0-28.9, adult; E87.6 Hypokalemia; I48.0 Paroxysmal atrial fibrillation; D63.1 Anemia in chronic kidney disease; K20.90 Esophagitis, unspecified without bleeding; K44.9 Diaphragmatic hernia without obstruction or gangrene; K26.9 Duodenal ulcer, unspecified as acute or chronic, without hemorrhage or perforation
CPT/HCPCS: 36415; 36416; 70450; 71045; 74230; 76770; 80048; 80053; 80202; 81001; 82040; 83036; 83605; 83630; 83690; 83735; 83880; 84145; 84443; 84484; 85014; 85018; 85025; 85049; 87040; 87324; 87449; 87507; 87899; 88305; 88342; 93005; 93010; 93306; 96374; 96375; 96376; C9113; J0456; J0692; J0696; J1644; J1650; J1815; J1940; J2272; J2405; J2704; J3370; J3475; J3480; J3490; J7050; J7120; P9047; Q0162

== ENCOUNTER 2023-06-24 16:57 | Emergency (ER) | payer MEDICARE ==
[2023-06-24 19:06] LABS: Bacteria/HPF 3+ HPF (None Seen); Bilirubin Negative (Negative); Blood, Urine 3+ (Negative); CAUTI Indications for Culture Acute Hematuria; Clarity Extra Turbid (Clear); Glucose, Urine (Dipstick) Normal (Negative); Ketone, Urine Negative (Negative); Leukocyte 500 Leu/uL (Negative); Nitrite Negative (Negative); Protein, Urine (Dipstick) 70 mg/dL (Neg-Trace); RBC/HPF Greater than 50 HPF (0-3); Specific Gravity, Urine 1.012 (1.002-1.036); Squamous Epithelial None Seen HPF (0-3); Urobilinogen Normal mg/dL (Less than 2); WBC/HPF Greater than 50 HPF (0-3)
[2023-06-24 19:24] LABS: Urine Culture Reflex Yes Yes
[2023-06-24] MEDS ORDERED: Lidocaine 1% PF 5 ML VIAL ONE (20:02)
[2023-06-24] MEDS ORDERED: cefTRIAXone (ROCEPHIN) 1 GM VIAL ONE (20:02)
== END 2023-06-24 21:51 | disposition home or self-care (01) ==
LOC: ERS 16:57
DX: N39.0 Urinary tract infection, site not specified (principal); E11.9 Type 2 diabetes mellitus without complications
CPT/HCPCS: 51702; 81001; 87077; 87086; 96372; 99283; J0696

== ENCOUNTER 2023-07-10 01:44 | Emergency (ER) | payer MEDICARE ==
[2023-07-10 03:20] LABS: Bacteria/HPF 4+ HPF (None Seen); Bilirubin Negative (Negative); Blood, Urine 3+ (Negative); CAUTI Indications for Culture Alt mental st,lethar; Clarity Turbid (Clear); Glucose, Urine (Dipstick) Normal (Negative); Ketone, Urine Negative (Negative); Leukocyte 500 Leu/uL (Negative); Nitrite Negative (Negative); Protein, Urine (Dipstick) 100 mg/dL (Neg-Trace); Specific Gravity, Urine 1.015 (1.002-1.036); Squamous Epithelial None Seen HPF (0-3); Urine Culture Reflex Yes Yes; Urobilinogen Normal mg/dL (Less than 2); WBC/HPF Greater than 50 HPF (0-3); pH, Urine 5.5 (5.0-9.0)
[2023-07-10 03:32] LABS: #Monocytes 0.4 thou/uL (0.11-0.59); #Neutrophils 8.9 thou/uL (1.40-6.50); %Basophils 0.1 % (0.0-1.0); %Lymphocytes 9.1 % (21.0-51.0); %Monocytes 4.2 % (0.0-10.0); %Neutrophils 85.3 % (42.0-75.0); Hematocrit 25.4 % (42.0-52.0); Hemoglobin 8.6 g/dL (14.0-18.0); Mean Corpuscular HGB CONC 33.9 g/dL (32.0-36.0); Mean Corpuscular Hemoglobin 30.8 pg (27.0-31.0); Mean Platelet Volume 8.5 fL (7.4-10.4); Platelet Count 151 10x3/uL (130-400); RBC Distribution Width 16.1 % (11.5-14.5); Red Blood Cell (RBC) Count 2.79 mill/uL (4.70-6.10); White Blood Cell (WBC) Count 10.4 10x3/uL (4.8-10.8)
[2023-07-10] MEDS ORDERED: Famotidine/PF 20 mg/2ml Vial ONE (03:37)
[2023-07-10 03:47] LABS: ALT (SGPT) 9 U/L (8-55); AST (SGOT) 12 U/L (5-34); Albumin 3.2 g/dL (3.4-4.8); Alkaline Phosphatase 85 U/L (40-110); Anion Gap 15 mmol/L (10-20); BUN (Urea Nitrogen) 40 mg/dL (8.4-25.7); Bilirubin, Total 1.1 mg/dL (0.2-1.2); Calc. Creatinine Clearance 0 mL/min (70-130); Calcium 8.5 mg/dL (7.8-10.44); Carbon Dioxide 23 mmol/L (23-31); Chloride 99 mmol/L (98-107); Estimated GFR 31; Globulin 2.7 g/dL (2.4-3.5); Glucose 206 mg/dL (83-110); Potassium 4.5 mmol/L (3.5-5.1); Protein, Total 5.9 g/dL (5.8-8.1); Sodium 132 mmol/L (136-145)
== END 2023-07-10 04:02 ==
LOC: ERS 01:44
DX: S00.83XA Contusion of other part of head, initial encounter (principal); S00.03XA Contusion of scalp, initial encounter; E11.22 Type 2 diabetes mellitus with diabetic chronic kidney disease; N18.9 Chronic kidney disease, unspecified; R82.71 Bacteriuria; W01.198A Fall on same level from slipping, tripping and stumbling with subsequent striking against other object, initial encounter
CPT/HCPCS: 70450; 72125; 80053; 81001; 85025; 87086; 93005; S0028

== ENCOUNTER 2023-07-10 14:22 | Emergency (ER) | payer MEDICARE ==
[2023-07-10 15:07] LABS: Hematocrit 25.3 % (42.0-52.0); Hemoglobin 8.3 g/dL (14.0-18.0); Manual Diff?? YES; Mean Corpuscular HGB CONC 32.8 g/dL (32.0-36.0); Mean Corpuscular Hemoglobin 30.6 pg (27.0-31.0); Mean Corpuscular Volume 93.4 fl (78.0-98.0); Mean Platelet Volume 8.6 fL (7.4-10.4); Platelet Count 144 10x3/uL (130-400); RBC Distribution Width 16.1 % (11.5-14.5); Red Blood Cell (RBC) Count 2.71 mill/uL (4.70-6.10); White Blood Cell (WBC) Count 10.2 10x3/uL (4.8-10.8)
[2023-07-10 15:17] LABS: Delete Auto Diff?? YES
[2023-07-10 15:28] LABS: ALT (SGPT) 9 U/L (8-55); AST (SGOT) 13 U/L (5-34); Albumin 3.2 g/dL (3.4-4.8); Alkaline Phosphatase 88 U/L (40-110); Anion Gap 12 mmol/L (10-20); BUN (Urea Nitrogen) 40 mg/dL (8.4-25.7); Bilirubin, Total 1.2 mg/dL (0.2-1.2); Calc. Creatinine Clearance 0 mL/min (70-130); Calcium 8.5 mg/dL (7.8-10.44); Carbon Dioxide 24 mmol/L (23-31); Chloride 98 mmol/L (98-107); Estimated GFR 28; Globulin 2.7 g/dL (2.4-3.5); Glucose 246 mg/dL (83-110); Potassium 4.4 mmol/L (3.5-5.1); Protein, Total 5.9 g/dL (5.8-8.1); Sodium 130 mmol/L (136-145)
[2023-07-10 15:29] LABS: Troponin I 0.012 ng/mL (< 0.028)
[2023-07-10 15:45] LABS: Anisocytosis SLIGHT = 6-15 cells HPF (0-5); Band 10 % (5-11); Burr Cells SLIGHT = 2-5 cells HPF (0-1); CellaVision Operator ID LAB.KB; Lymphocytes 4 % (21-51); Monocytes 4 % (0-10); Neutrophil 81 % (42-75); Ovalocytes SLIGHT = 2-5 cells HPF (0-1); Platelet Adequacy Comment Platelets Normal; Polychromasia SLIGHT = 2-3 cells HPF (0-2); Reactive Lymphocytes 1 % (0-10); Smudge Cells 5.1 %; Total Cell Count 99
[2023-07-10 19:20] LABS: Bacteria/HPF 4+ HPF (None Seen); Bilirubin Negative (Negative); Blood, Urine 3+ (Negative); CAUTI Indications for Culture Dysuria,urgency,freq; Clarity Extra Turbid (Clear); Glucose, Urine (Dipstick) Normal (Negative); Ketone, Urine Negative (Negative); Leukocyte 500 Leu/uL (Negative); Nitrite Negative (Negative); Protein, Urine (Dipstick) 100 mg/dL (Neg-Trace); RBC/HPF Greater than 50 HPF (0-3); Specific Gravity, Urine 1.017 (1.002-1.036); Squamous Epithelial None Seen HPF (0-3); Urobilinogen Normal mg/dL (Less than 2); pH, Urine 5.5 (5.0-9.0)
[2023-07-10 20:43] LABS: Influenza A by NAA Not Detected (NotDetected); Influenza B by NAA Not Detected (NotDetected); SARS-CoV-2 NAA Rapid Test Not Detected (NotDetected)
== END 2023-07-10 22:20 ==
LOC: ERS 14:22
DX: S00.83XA Contusion of other part of head, initial encounter (principal); N39.0 Urinary tract infection, site not specified; F03.90 Unspecified dementia, unspecified severity, without behavioral disturbance, psychotic disturbance, mood disturbance, and anxiety; I48.91 Unspecified atrial fibrillation; I12.0 Hypertensive chronic kidney disease with stage 5 chronic kidney disease or end stage renal disease; E11.22 Type 2 diabetes mellitus with diabetic chronic kidney disease; N18.6 End stage renal disease; E03.9 Hypothyroidism, unspecified; K21.9 Gastro-esophageal reflux disease without esophagitis; E78.00 Pure hypercholesterolemia, unspecified; Z79.899 Other long term (current) drug therapy; Z55.6 Problems related to health literacy; W22.8XXA Striking against or struck by other objects, initial encounter; Y92.129 Unspecified place in nursing home as the place of occurrence of the external cause
CPT/HCPCS: 0240U; 70450; 72125; 80053; 81001; 82550; 84484; 85025; 93005; 94760; 36415; 87077; 87086; S0028